=== PATIENT | female | born 1985 | race Two or more races ===

== ENCOUNTER → 2020-05-31 | Outpatient (CLI) | payer OTHER | END | disposition home or self-care (01) | LOC: PPH VACUNA 08:00 | DX: Z23 Encounter for immunization (principal) ==

== ENCOUNTER 2020-07-19 10:42 | Outpatient (CLI) | payer OTHER | END 2020-07-19 16:36 | disposition home or self-care (01) | LOC: LAB 10:42 | DX: Z20.828 Contact with and (suspected) exposure to other viral communicable diseases (principal) ==

== ENCOUNTER 2020-07-19 11:53 | Outpatient (CLI) | payer OTHER | END 2020-07-19 12:05 | disposition home or self-care (01) | LOC: MRI 11:53 | PROVIDERS: ATTEND Anesthesiology Pain Medicine | DX: G37.8 Other specified demyelinating diseases of central nervous system (principal); G43.909 Migraine, unspecified, not intractable, without status migrainosus | CPT/HCPCS: 70551 ==

== ENCOUNTER 2021-01-18 06:30 | Day surgery (SDC) | payer OTHER | END 2021-01-18 11:10 | disposition home or self-care (01) | LOC: AMB-ENDOS 06:30 | PROVIDERS: ATTEND Colon & Rectal Surgery | DX: D13.1 Benign neoplasm of stomach (principal); K44.9 Diaphragmatic hernia without obstruction or gangrene; K64.0 First degree hemorrhoids; Z20.822 Contact with and (suspected) exposure to COVID-19 ==